=== PATIENT | female | born 1965 | race Caucasian/White ===

== ENCOUNTER 2023-07-04 16:10 | Outpatient (CLI) | payer OTHER, SELFPAY ==
--- NOTE | ~2023-07-04 | MR_ITS ---
EXAMINATION: MR cervical spine wo con DATE: 07/04/2023 16:53 INDICATION: Disease of spinal cord, unspecified. TECHNIQUE: Magnetic resonance imaging (MRI) of the cervical spine was performed without intravenous c ontrast. Sequences included sagittal T2-weighted FSE, sagittal T2-weighted FS FSE, sagittal T1-weight ed FSE, axial MERGE, and axial T2-weighted FSE. COMPARISON: None FINDINGS: There is 2 mm anterolisthesis of C4 on C5. There is mild kyphosis of cervical spine. Verteb ral body heights are normal. There is mildly decreased disc height at C5-C6. The spinal cord signal i ntensity is normal. The following disc levels are specifically discussed: C2-C3: The disc does not extend beyond the endplate margin. There is no uncovertebral joint osteoarth ritis. There is mild right and severe left facet joint osteoarthritis. There is mild left neural fora jennifer stenosis. There is no central canal stenosis. C3-C4: There is a central extrusion. There is moderate right and mild left uncovertebral joint osteoa rthritis. There is severe bilateral facet joint osteoarthritis. There is severe right and mild left n eural foraminal stenosis. There is mild central canal stenosis. C4-C5: The disc is bulging. There is mild bilateral uncovertebral joint osteoarthritis. There is jeremy re bilateral facet joint osteoarthritis. There is severe right and mild left neural foraminal stenosi s. There is no central canal stenosis. C5-C6: There is a central extrusion. There is severe bilateral uncovertebral joint osteoarthritis. Th ere is moderate right and mild left facet joint osteoarthritis. There is mild bilateral neural forami nal stenosis. There is moderate central canal stenosis with ventral and dorsal indentation of the spi nal cord. C6-C7: There is a central protrusion. There is no uncovertebral joint osteoarthritis. There is severe right and moderate left facet joint osteoarthritis. There is mild right neural foraminal stenosis. T here is no central canal stenosis. C7-T1: The disc does not extend beyond the endplate margin. There is no uncovertebral joint osteoarth ritis. There is moderate bilateral facet joint osteoarthritis. There is no neural foraminal stenosis. There is no central canal stenosis. IMPRESSION: 1. Moderate cervical spondylosis. Reviewed, dictated and finalized at location A.
== END 2023-07-04 16:11 | disposition home or self-care (01) ==
LOC: ANHIMG 16:14
PROVIDERS: PCP Internal Medicine; Visit Provider Neurological Surgery
DX: M47.892 Other spondylosis, cervical region (principal)
CPT/HCPCS: 72141

== ENCOUNTER 2023-07-18 15:11 | Outpatient (CLI) | payer OTHER, SELFPAY ==
--- NOTE | ~2023-07-18 | XR_ITS ---
EXAMINATION: XR cervical spine 4-5V DATE: 07/18/2023 15:27 INDICATION: Disease of spinal cord, unspecified. TECHNIQUE: 6 views of cervical spine were obtained. COMPARISON: Cervical spine MRI 07/04/2023 FINDINGS: There is 2 mm anterolisthesis of C4 on C5. There is 6 degrees levocurvature of cervical spi ne. There is no abnormal motion with flexion or extension. Vertebral body heights are normal. There i s mildly decreased disc height at C5-C6. There is multilevel facet joint osteoarthritis, severe on th e right at C3-C4, C4-C5, and C5-C6. There is multilevel uncovertebral joint osteoarthritis, severe on the right at C4-C5 and bilaterally at C5-C6. No central canal stenosis or prevertebral soft tissue s welling. IMPRESSION: 1. Moderate cervical spondylosis. Reviewed, dictated and finalized at location E.
== END 2023-07-18 15:12 | disposition home or self-care (01) ==
LOC: ANHIMG 15:13
PROVIDERS: PCP Internal Medicine; Visit Provider Neurological Surgery
DX: G95.9 Disease of spinal cord, unspecified (principal); M47.892 Other spondylosis, cervical region
CPT/HCPCS: 72050

== ENCOUNTER 2023-09-10 11:14 | Outpatient (CLI) | payer OTHER, SELFPAY ==
--- NOTE | ~2023-09-10 | XR_ITS ---
EXAMINATION: XR chest 2V 09/10/2023 12:33 INDICATION: Patient vapes. PROCEDURE: 2 view chest COMPARISON: No prior studies for comparison. FINDINGS: The lungs are clear. The cardiomediastinal silhouette is within normal limits. There are no pleural effusions. There is no pneumothorax suspected. IMPRESSION: 1: NO ACUTE CARDIOPULMONARY DISEASE. Reviewed, dictated and finalized at location L. AGE STRINGER
--- NOTE | 2023-09-10 11:43 | ECG_ITS ---
Measurements Intervals [place] Rate: 92 P: 71 CA: 153 QRS: 13 QRSD: 80 T: 29 QT: 351 QTc: 436 Interpretive Statements SINUS RHYTHM LOW QRS VOLTAGE IN PRECORDIAL LEADS PATTERN CONSISTENT WITH PULMONARY DISEASE CONSIDER INFERIOR INFARCT, AGE INDETERMINATE BASELINE WANDER- V5 ABNORMAL ECG NO PREVIOUS ECG AVAILABLE FOR COMPARISON Electronically Signed On 09-10-2023 16:40:42 LIMEHOUSE WORKER by Praveen Leonardo D.O.
[2023-09-10 12:35] LABS: Hematocrit 44.7 % (37.0-47.0); Mean Corpuscular HGB Conc 31.3 g/dl (32-36); Mean Corpuscular Hemoglobin 27.3 pg (26-34); Mean Corpuscular Volume 87.3 fl (80-100); Mean Platelet Volume 10.3 fl (7.4-10.4); Platelet Count Result 237 k/mm3 (150-375); Red Blood Count 5.12 M/mm3 (4.2-5.4); Red Cell Distribution Width 13.9 % (11.5-14.5); White Blood Count 11.2 K/mm3 (4.5-10.0)
[2023-09-10 12:44] LABS: Appearance Urine Turbid (Clear); Bilirubin Urine Negative (Negative); Blood Urine Negative (Negative); Color Urine Yellow (Yellow); Glucose Urine UA Negative (Negative); Ketones Urine Trace mg/dL (Negative); Leukocyte Esterase Ur Trace LEU/UL (Negative); Nitrate Urine Negative (Negative); Protein Urine Negative (Negative); Specific Grav Ur 1.025 (1.001-1.035)
[2023-09-10 12:45] LABS: Anion Gap 10 mmol/L (8-16); Blood Urea Nitrogen 19 mg/dL (7-17); Calcium 8.8 mg/dL (8.4-10.2); Carbon Dioxide 26 mmol/L (22-30); Chloride 102 mmol/L (98-107); Estimated Glomerular Filt Rate > 60; Glucose 139 mg/dL (65-110); Potassium 3.8 mmol/L (3.4-5.0); Sodium 138 mmol/L (137-145)
[2023-09-10 12:46] LABS: Prothrombin Time 13.9 Seconds (11.1-14.7)
[2023-09-10 12:47] LABS: Add Urine Microscopic? YES; Partial Thromboplastin Time 26.7 SECONDS (22.3-36.8)
[2023-09-10 12:52] LABS: Bacteria Urine 4+ /hpf; Squamous Epithelial Cell Urine Many /hpf (Few); WBC Urine 21-50 /hpf
== END 2023-09-10 11:15 | disposition home or self-care (01) ==
PROVIDERS: PCP Internal Medicine; Visit Provider Neurological Surgery
DX: Z01.818 Encounter for other preprocedural examination (principal)
CPT/HCPCS: 36415; 71046; 80048; 81001; 85027; 85610; 85730; 86850; 86900; 86901; 87086; 87088; 93005

== ENCOUNTER 2023-09-11 03:38 | Day surgery (SDC) | payer OTHER, SELFPAY ==
[2023-09-04 11:31] VITALS: BMI 48.9
--- NOTE | 2023-09-04 11:40 | PC.NURSE ---
Report to the Outpatient Waiting Room, entrance under the green pavilion located off [facility], at time 6:00 on date 09/11/23. Planned Procedure Time: 7:30. Time changes happen often and if your time is changed the preop area will call you the afternoon before. - You and your visitor will be asked to self-screen and do not enter if you have any COVID symptoms. - A mask is optional within the hospital at this time. Patients may have clear liquids (water, carbonated beverages, clear teas, apple juice) until 3 hours prior to surgery with a maximum of 20 ounces. - No food from midnight until time of surgery Take the following medications with a SIP of water the morning of surgery: INHALER IF NEEDED, DIVALPROEX, FLUOXETINE, HYDROXYZINE/LORAZEPAM IF NEEDED DO NOT STOP ANY OF YOUR OTHER PRESCRIPTION MEDICATIONS PRIOR TO SURGERY ?EXCEPT THE FOLLOWING Medications to discontinue per physician: N/A Date to take last dose: N/A Please no make-up, nail uzbek, hairspray, perfume, deodorant, or body powder the day of surgery. No jewelry (including any body piercings) or valuables the day of surgery, leave them at home. Please take a shower or bath the night before, or the morning of, surgery with an antibacterial soap. Wear comfortable, loose fitting clothing. - Jewelry must be removed prior to entering the operating room. Rings and piercings that are not removed may be cut off. - The hospital will not accept responsibility for valuables. - Please leave all valuables, including medications, at home the day of surgery. If you are going home after surgery, a licensed otr refrigerated cdl truck driver must drive you home. - NO public transportation without another adult if you receive anesthesia. - We recommend that an adult stay with you for 24 hours following discharge. - We also recommend that you do not drive, make important decision, drink alcoholic beverages, or take any drugs that were not prescribed by your health care provider for at least 24 hours after your discharge time. Follow any additional instructions given to you from your surgeon. If you or anyone in your household have experienced Covid symptoms in the past week, please notify your surgeon or the nurse liaison at the phone number below for possible testing. Telephone instructions given to PT - JAIME BORGES and asked if any additional questions and then verbalized understanding. Patient advised to call surgeon office or pre surgery nurse liaison [phone] if any additional questions.
--- NOTE | 2023-09-04 15:42 | PC.NURSE ---
Spoke with pt regarding housing after surgery. Pt states she will be staying with her daughter after hospital D/C. States housing is not an issue beyond that date.
[2023-09-11] VITALS (13 sets, daily range): BP systolic 119–139; BP diastolic 53–95; PULSE 77–103; RESP 13–20; TEMP 36.2–36.7; O2SAT 91–100; BMI 47.1
--- NOTE | ~2023-09-11 | XR_ITS ---
XR fluoroscopy no charge Indication: Anterior cervical fusion and discectomy TECHNIQUE: Fluoroscopy used during Anterior cervical fusion and discectomy performed by [Nayeli Guzmán MD] on 09/11/2023. 10 seconds of fluoroscopy time with 3 images captured. FINDINGS: Correlate with procedure note. IMPRESSION: Fluoroscopy used during Anterior cervical fusion and discectomy at C4-6. Reviewed, dictated and finalized at location B. ER HELPER
[2023-09-11] MEDS: LACTATED RINGERS 1,000 ML 30 ML IV CONT ×2 (07:00→11:10)
--- NOTE | 2023-09-11 07:24 | PM.IMHP ---
H&P: HPI History of Present Illness Date/Time: 09/11/23 07:24 Chief Complaint: myelopathic symptoms Narrative: Ms. Burkett is a 57-year-old female with history of asthma and bipolar disorder who presents for evaluation of neck pain.? She has about a 5 year history of bilateral paraspinal neck pain which is intermittent and does not occur in a daily basis.? However, it become so significant that it moves her tears, particularly at the end of workday.? She denies any radicular pain into her but does have paresthesias in all fingers of both hands, worse on right side, for the last 8 months.? She has been dropping objects her right hand.? She also reports some difficulty with tripping, falling, and balance, as well as a 1 year history urinary urgency and possible overflow incontinence.? She does completed a course physical therapy with 10 visits which did not make any significant change.? She tried a muscle relaxer as well as ibuprofen, Tylenol, heat, ice, and getting a new bed, none of which have provided any significant benefit.? She has not seen a pain management physician for her neck. ? She is a previous smoker but currently vapes. 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 Review of Systems Review of Systems: All systems reviewed & are unremarkable except as noted in HPI and below PMFSH Past Medical History Medical History Cervical myelopathy Family History Family History Father Diabetes mellitus Hypertension Sibling Hypertension Depression Anxiety Heart disease Daughter Anxiety Depression Social History Social History Social History: Kayla is very confident filling out medical forms. In the last 12 months she has received assistance from an organization or program for food. Smoking packs per day: 1 Smoking cigarettes per day: 20.0 Years smoked: 37 Smoking pack-years: 37.00 Smoking status: Current every day smoker Tobacco type: cigarettes and e-cigarettes/vaping Additional smoking assessment comments: QUIT CIGARETTES 2018, NOW VAPING Alcohol intake: current Alcohol use details: VERY RARE Substance use: never Substance use type: does not use Lack of Transportation: No Lack of Food: Never True Current Housing: I Have Housing Concerned About Future Housing: No Difficulty Paying Gas/Electric Bills: No Difficulty Paying for Meds: No Currently Unemployed: No Education: High School Diploma/GED Difficulty w/ Childcare or Family Care: No Living arrangements: alone Additional living arrangements comments: PT STATES MAY BE HOMELESS SOON, BUT CONFIDENT SHE WOULD HAVE A PLACE TO STAY WITH A FAMILY MEMBER IF DISCHARGED 09/12. 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 [employer] Spiritual care concerns: No Agree to blood products: Yes Meds Home Medications and Allergies Home Medications Medication Instructions Recorded Confirmed Type divalproex 500 mg tablet,delayed 500 mg PO Q12H 05/08/23 09/11/23 History release fluoxetine 20 mg capsule 20 mg PO DAILY 05/08/23 09/11/23 History hydroxyzine pamoate 25 mg capsule 25 mg PO BID PRN Anxiety 05/08/23 09/11/23 History lorazepam 0.5 mg tablet 0.5 mg PO DAILY PRN Anxiety 05/08/23 09/11/23 History quetiapine 400 mg tablet 400 mg PO HS 05/08/23 09/11/23 History albuterol sulfate 90 mcg/actuation 1 inh inhalation Q4H PRN 09/04/23 09/04/23 History aerosol inhaler Bronchospasm Allergies Allergy/AdvReac Type Severity Reaction Status Date / Time No Known Allergies Allergy Verified 09/04/23 11:30 Exam Narrative: Fairly significant paraspinal muscle tenderness bilaterally Pain with active ROM in all directions Otherwise no deficit or abnormal reflexes Unless otherwise stated ab
--- NOTE | 2023-09-11 07:26 | WPDHPUPDATE1 ---
History and Physical Update Update Date/Time: 09/11/23 07:26 History and Physical has been reviewed, including an updated exam of the patient. There are NO changes in the patient's condition. Risks, benefits, and alternatives have been discussed and questions answered. Patient agrees to proceed with procedure.
--- NOTE | 2023-09-11 07:34 | SUR.PREOP ---
0650-Pt aware of surgery delay until 0800.
[2023-09-11] MEDS: ceFAZolin 3 GM/D5W 100 ML 100 ML IVPB (08:00)
--- NOTE | 2023-09-11 08:17 | WPDANESEPPF ---
Anes - Initial Pre Proc Eval Procedure: Operation Date: 09/11/23 07:30 Proposed Procedures p Anterior Cervical Discectomy with Fusion C4-C5, C5-C6 - Nayeli Guzmán MD Date/Time: 09/11/23 08:17 Surgeon: Nayeli Guzmán MD Pre Op Diagnosis: cervical disc herniation myelopathy,cervical spond Patient Data Age: 57 Gender: F Height: 1.63 m Weight: 124.5 kg Last Vital Signs Temp 36.2 C L 09/11/23 06:17 Pulse 90 09/11/23 06:17 Resp 20 09/11/23 06:17 BP 139/95 H 09/11/23 06:17 Pulse Ox 99 09/11/23 06:17 O2 Del Method Room Air 09/11/23 06:17 Allergies Allergy/AdvReac Type Severity Reaction Status Date / Time No Known Allergies Allergy Verified 09/04/23 11:30 Home Medications Medication Instructions Recorded Confirmed Type divalproex 500 mg tablet,delayed 500 mg PO Q12H 05/08/23 09/11/23 History release fluoxetine 20 mg capsule 20 mg PO DAILY 05/08/23 09/11/23 History hydroxyzine pamoate 25 mg capsule 25 mg PO BID PRN Anxiety 05/08/23 09/11/23 History lorazepam 0.5 mg tablet 0.5 mg PO DAILY PRN Anxiety 05/08/23 09/11/23 History quetiapine 400 mg tablet 400 mg PO HS 05/08/23 09/11/23 History albuterol sulfate 90 mcg/actuation 1 inh inhalation Q4H PRN 09/04/23 09/04/23 History aerosol inhaler Bronchospasm Patient hx anesthesia problems: none Family hx anesthesia problems: none Results Review: All pre-operative results and documents have been reviewed as part of the pre-operative evaluation. [facility] Past Medical History Medical History (Updated 09/11/23 @ 08:18 by Arnaldo Rivera DO) Asthma Bipolar disorder Cervical myelopathy Chronic pain Family History Family History Father Diabetes mellitus Hypertension Sibling Hypertension Depression Anxiety Heart disease Daughter Anxiety Depression Social History Social History Social History: Kayla is very confident filling out medical forms. In the last 12 months she has received assistance from an organization or program for food. Smoking packs per day: 1 Smoking cigarettes per day: 20.0 Years smoked: 37 Smoking pack-years: 37.00 Smoking status: Current every day smoker Tobacco type: cigarettes and e-cigarettes/vaping Additional smoking assessment comments: QUIT CIGARETTES 2018, NOW VAPING Alcohol intake: current Alcohol use details: VERY RARE Substance use: never Substance use type: does not use Lack of Transportation: No Lack of Food: Never True Current Housing: I Have Housing Concerned About Future Housing: No Difficulty Paying Gas/Electric Bills: No Difficulty Paying for Meds: No Currently Unemployed: No Education: High School Diploma/GED Difficulty w/ Childcare or Family Care: No Living arrangements: alone Additional living arrangements comments: PT STATES MAY BE HOMELESS SOON, BUT CONFIDENT SHE WOULD HAVE A PLACE TO STAY WITH A FAMILY MEMBER IF DISCHARGED 09/12. 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 Informed Consent: The patient's anesthetic plan and its attendant risks and benefits were discussed with the patient/family/POA. Questions were solicited and answers provided to the satisfaction of the patient
[2023-09-11] MEDS: BUPIVACAINE/EPINEPHRINE 0.5% 50 ML VIAL 20 ML INFILTRATE (08:38)
--- NOTE | 2023-09-11 11:14 | P.OPB_ITS ---
Procedure Note - Brief Procedure Note - Brief Date of procedure: 09/11/23 cervical disc herniation myelopathy,cervical spond Post-op diagnosis: Same Procedure performed: Anterior cervical diskectomy and fusion C4-5, C5-6 Use of microscope Use of C-arm Surgeon: Nayeli Guzmán MD Competitive Intelligence Analyst: Herbert Anesthesia: LAVERN Estimated blood loss (mL): 50 Drains: No Packing: No Pathology: None sent Complications: None Condition: Stable Disposition: PACU
[2023-09-11] MEDS: fentaNYL CITRATE INJ (*CRX) 100 MCG/2 ML VIAL 25 MCG IV PUSH ×8 (11:39→12:10)
--- NOTE | 2023-09-11 13:00 | ADMGEN ---
This patient, Kayla Burkett, was admitted to Medical Room 348-. Patient/family oriented to hospital policies and general routines including ID bracelet, bed and alarms, visiting hours, pain management, procedures, bathroom and other care routines, personal items, smoking policy, room service/diet, and visiting hours. Information on how to activate the Rapid Response Team has been discussed. Patient/Family are encouraged to report perceived risks to care and to ask questions if they do not understand what they are told or what they should do.
--- NOTE | 2023-09-11 14:23 | W.PM.PROC2 ---
Procedure Note - Detailed Date of Procedure 09/11/23 Pre-op Diagnosis cervical disc herniation myelopathy,cervical spond Post-op Diagnosis Same Procedure Performed 1. Anterior cervical diskectomy at C4-5, C5-6 2. Anterior cervical instrumentation at C4-5, C5-6 3. Anterior cervical arthrodesis at C4-5, C5-6 4. Use of microscope for microsurgical dissection 5. Use of C-arm for fluoroscopy Surgeon Nayeli Guzmán MD Talend Developer Herbert Anesthesia General Description of Procedure The patient was taken to the operating room and was transferred to the operating table in the supine position. General anesthesia was induced. Pressure points were appropriately padded, and compression devices were placed on the patient's calves. A shoulder roll was placed. The previous surgical site was marked, and the appropriate level was confirmed with the C-arm XR imaging. The patient was prepped and draped in usual sterile fashion. Perioperative antibiotics were given. Time out was performed. Local anesthesia was injected into the planned incision site. Incision was made with a 10-blade scalpel. The subcutaneous tissue was undermined above the platysma with the Metzenbaum scissors. The platysma was sharply opened horizontally. Bleeding was controlled with the bipolar. The avascular plane to the spine was dissected sharply. The anterior border of the spine was located and exposed with sharp and blunt dissection. A spinal needle was used to localize the C4-5 disc space; this was confirmed on fluoroscopy. The longus coli muscles were elevated bilaterally with a bovie. Once the C4, C5, and C6 vertebral bodies and adjacent intervertebral discs were adequately exposed, self-retaining retractors were placed. Barnard pins were placed in the C4 and C5 vertebral bodies and were distracted. A 15-blade scalpel was used to incise the C4-5 disc. A combination of Kerrisons, currettes, and pituitary instruments were used to remove each disc. The microscope was draped and brought into the surgical field. The removal of disc and osteophytes were completed using a high-speed drill, multiple Kerrison punches, and angled currettes. The posterior longitudinal ligament was opened with a currette and kerrison rongeurs until the neuroforamen bilaterally were adequately decompressed. Interbody trial instruments were used to determine the appropriate size for the prosthetic vertebral interbody cage. Hemostasis was achieved in the disc space. A 6mm cage was placed at C4-5. The caspar pin in C4 was removed and placed in the C6 vertebral body. Bone wax was used to fill the bone where the caspar pin had been. The diskectomy process was repeated at the C5-6 disc. The disc was removed as described above, and the posterior longitudinal ligament was opened until the neuroforamen bilaterally were adequately decompressed. Interbody trial instruments were used to determine the appropriate size for the prosthetic vertebral interbody cage. Hemostasis was achieved in the disc space. A 6mm cage was also placed at this level. The Barnard pins were removed, and bone wax was used for hemostasis. Osteophytes over the vertebral bodies were removed wtih a Leksell and high-speed drill. A 34mm plate was placed over the vertebral bodies and secured with 14mm screws. Accurate hardware placement was confirmed with fluoroscopy. The surgical cavity was copiously irrigated; appropriate hemostasis was verified; and there was no evidence of dural tear/CSF leak. The platysma was closed with interrupted 3-0 Vicryl, followed by interrupted 3-0 Vicryl for the dermis, and 4-0 running subcuticular monocryl for the skin. Dermabond was placed. The patient was extubated, transferred to the bed, and taken to the PACU without incident. Billing codes: 00565, 81650, 66682 x 2, 18514, 31650 Implants 1. Two 6mm Orthofix miniconstruct cages 2. One 34mm Zavation EZ plate 3. Six 4 x 14mm screws 4. 2.5cc iFactor Estimated Blood Loss 50 Drains No Packing
[2023-09-11] MEDS: oxyCODONE HCL (*CRX) 5 MG TAB IR PO ×2 (14:40→22:52)
[2023-09-11] MEDS: ceFAZolin 2 GM/D5W 50 ML 2 GM/50 ML BAG IVPB ×2 (17:02→22:53)
[2023-09-11] MEDS: ACETAMINOPHEN 500 MG TABLET 1000 MG PO ×2 (17:02→22:52)
[2023-09-11] MEDS: DIVALPROEX SODIUM DR 250 MG TABEC 500 MG PO (20:06)
[2023-09-11] MEDS: DOCUSATE SODIUM 100 MG CAPSULE PO (20:07)
[2023-09-11] MEDS: QUEtiapine FUMARATE 100 MG TABLET 400 MG PO (20:07)
[2023-09-11] MEDS: CYCLOBENZAPRINE HCL 10 MG TABLET PO (22:52)
[2023-09-12 00:13] VITALS: BP 111/59; PULSE 98; RESP 16; TEMP 36.6; O2SAT 96
[2023-09-12] MEDS: ACETAMINOPHEN 500 MG TABLET 1000 MG PO (05:36)
[2023-09-12] MEDS: oxyCODONE HCL (*CRX) 5 MG TAB IR 10 MG PO (05:36)
[2023-09-12 05:39] VITALS: BP 106/52; PULSE 96; RESP 14; TEMP 36.5; O2SAT 100
[2023-09-12] MEDS: DIVALPROEX SODIUM DR 250 MG TABEC 500 MG PO (08:13)
[2023-09-12] MEDS: DOCUSATE SODIUM 100 MG CAPSULE PO (08:13)
[2023-09-12] MEDS: ceFAZolin 2 GM/D5W 50 ML 2 GM/50 ML BAG IVPB (08:13)
[2023-09-12] MEDS: FLUoxetine HCL 20 MG CAPSULE PO (08:13)
--- NOTE | 2023-09-12 10:03 | WPDANESPN ---
Anes - Prog Note Post-Op Date/Time: 09/12/23 10:03 Cardiovascular status: normal Respiratory status: normal Airway patency: baseline Mental status: baseline Post-Op hydration status: normal Vital Signs: Last Vital Signs Temp 36.5 C 09/12/23 05:39 Pulse 96 09/12/23 05:39 Resp 14 09/12/23 05:39 BP 106/52 L 09/12/23 05:39 Pulse Ox 100 09/12/23 05:39 O2 Del Method Room Air 09/12/23 08:00 O2 Flow Rate 4 09/11/23 12:15 Pain Score (VAS): 2/10 I/O: Intake & Output 09/11/23 09/12/23 09/12/23 23:59 07:59 15:59 Intake Total 640 Balance 640 Post-procedural complaints: none Patient Feedback: Patient satisfied with anesthetic care.
--- NOTE | 2023-09-12 15:15 | PC.NURSE ---
Patient's daughter Court called and stated that [facility] in [facility] was out of stock of oxycodone 5 mg tabs. Call placed to [facility] and they do have it in stock. Call placed to Dr Guzmán and she stated that she did not have a computer now to send script but would contact her partner and see if they would be able to send script electronically. I called Court back to let her know.
== END 2023-09-12 10:54 | disposition home or self-care (01) ==
LOC: ANHSURGERY 11:18 → ANH3MED 12:23
PROVIDERS: PCP Internal Medicine; Visit Provider Neurological Surgery
PROC: (CPT 63030; principal; 2023-09-11 07:30)
DX: M50.022 Cervical disc disorder at C5-C6 level with myelopathy (principal); M43.12 Spondylolisthesis, cervical region; J45.909 Unspecified asthma, uncomplicated; F31.9 Bipolar disorder, unspecified; G89.29 Other chronic pain; Z79.51 Long term (current) use of inhaled steroids; F17.290 Nicotine dependence, other tobacco product, uncomplicated; E66.01 Morbid (severe) obesity due to excess calories; Z68.42 Body mass index [BMI] 45.0-49.9, adult
CPT/HCPCS: 22551; 22552; 22853 ×2; 99199; A9270; C1713; J0330; J0690; J1100; J2250; J2371; J2405; J2704; J3010; J7120

== ENCOUNTER 2023-09-12 21:22 | Emergency (ER) | payer OTHER, SELFPAY ==
--- NOTE | 2023-09-12 | ECG_ITS ---
Measurements Intervals [place] Rate: 104 P: 66 PA: 140 QRS: 12 QRSD: 78 T: 43 QT: 285 QTc: 376 Interpretive Statements SINUS TACHYCARDIA DELAYED PRECORDIAL R/S TRANSITION LOW QRS VOLTAGE IN PRECORDIAL LEADS NONSPECIFIC T-WAVE ABNORMALITY- ANT/INF LEADS BASELINE ARTIFACT- I, II, AVR, AVL, AVF, V1 BORDERLINE ECG COMPARED TO ECG 09/10/2023 12:18:03 SINUS TACHYCARDIA NOW PRESENT Electronically Signed On 09-13-2023 10:31:01 OXIDATION ENGINEER by Praveen Leonardo D.O.
--- NOTE | ~2023-09-12 | XR_ITS ---
XR chest 1V portable DATE: 09/12/2023 21:52 INDICATION: Chest pain TECHNIQUE: Portable upright AP chest views on 09/12/2023 2145 hours COMPARISON: 09/10/2023 PA and lateral chest FINDINGS: Status post anterior cervical spine surgical fusion since 09/10/2023. Normal heart size. No hilar or mediastinal enlargement.. No pulmonary infiltrate or consolidation, pl eural effusion or pulmonary vascular congestion or pneumothorax IMPRESSION: No active cardiopulmonary disease Interval anterior cervical spine surgical fusion since 09/10/2023 Reviewed, dictated and finalized at location A. AND FROST INSULATOR
[2023-09-12 21:22] VITALS: PULSE 110; RESP 16; TEMP 36.3; O2SAT 98
[2023-09-12 21:58] LABS: Basophils Percent Auto 0.3 % (0.2-1.2); Eosinophils Absolute Auto 0.2 K/mm3 (0-0.3); Eosinophils Percent Auto 2.1 % (0-4.4); Hematocrit 40.8 % (37.0-47.0); Hemoglobin 12.9 g/dL (12.0-15.0); Immature Granulocyte Absolute 0.05 K/mm3 (0.00-0.031); Immature Granulocyte Percent A 0.5 % (0-0.5); Lymphocytes Absolute Auto 3.91 K/mm3 (0.9-3.2); Lymphocytes Percent Auto 35.6 % (18.3-44.2); Mean Corpuscular HGB Conc 31.6 g/dl (32-36); Mean Corpuscular Hemoglobin 27.4 pg (26-34); Mean Corpuscular Volume 86.6 fl (80-100); Mean Platelet Volume 10.1 fl (7.4-10.4); Monocytes Absolute Auto 0.8 K/mm3 (0.1-0.6); Monocytes Percent Auto 7.1 % (2.6-8.5); Neutrophils Percent Auto 54.4 % (45.5-73.1); Platelet Count Result 181 k/mm3 (150-375); Red Blood Count 4.71 M/mm3 (4.2-5.4)
[2023-09-12 22:07] LABS: Prothrombin Time 13.5 Seconds (11.1-14.7)
[2023-09-12 22:08] LABS: Partial Thromboplastin Time 27.2 SECONDS (22.3-36.8)
[2023-09-12 22:12] LABS: Alanine Aminotransferase 12 U/L (6-35); Albumin Level 3.6 g/dL (3.5-5.1); Alkaline Phosphatase 88 U/L (38-126); Anion Gap 7 mmol/L (8-16); Aspartate Amino Transferase 17 U/L (14-36); Bilirubin,Total 0.4 mg/dL (0.2-1.3); Blood Urea Nitrogen 12 mg/dL (7-17); Calcium 8.7 mg/dL (8.4-10.2); Carbon Dioxide 30 mmol/L (22-30); Chloride 100 mmol/L (98-107); Estimated CRCL calculation 117 ml/min; Estimated Glomerular Filt Rate > 60; Glucose 147 mg/dL (65-110); Lipase 200 U/L (23-300); Potassium 3.7 mmol/L (3.4-5.0); Sodium 137 mmol/L (137-145)
[2023-09-12] MEDS: methocarbamoL 750 MG TABLET PO (22:18)
[2023-09-12] MEDS: oxyCODONE HCL (*CRX) 5 MG TAB IR 10 MG PO (22:18)
[2023-09-12 22:24] LABS: Troponin I < 0.012 ng/mL (0.000-0.034)
--- NOTE | 2023-09-12 23:19 | ED.GENADULT ---
HPI - General Adult General Chief complaint: Chest Pain Stated complaint: CP s/p NECK SURGERY Time Seen by Provider: 09/12/23 21:49 History of Present Illness HPI narrative: this is a 57-year-old female presenting ED with neck pain. Patient had a cervical fusion performed earlier today. She was not able to her RX for pain. She is not complaining of pain in her neck. No difficulty breathing or trouble swallowing. No voice changes. No other complaints. Related Data Home Medications Medication Instructions Recorded Confirmed divalproex 500 mg tablet,delayed 500 mg PO Q12H 05/08/23 09/11/23 release fluoxetine 20 mg capsule 20 mg PO DAILY 05/08/23 09/11/23 hydroxyzine pamoate 25 mg capsule 25 mg PO BID PRN Anxiety 05/08/23 09/11/23 lorazepam 0.5 mg tablet 0.5 mg PO DAILY PRN Anxiety 05/08/23 09/11/23 quetiapine 400 mg tablet 400 mg PO HS 05/08/23 09/11/23 albuterol sulfate 90 mcg/actuation 1 inh inhalation Q4H PRN 09/04/23 09/04/23 aerosol inhaler Bronchospasm Allergies Allergy/AdvReac Type Severity Reaction Status Date / Time No Known Allergies Allergy Verified 09/11/23 14:41 [facility] Past Medical History Medical History Asthma Bipolar disorder Cervical myelopathy Chronic pain Family History Family History Father Diabetes mellitus Hypertension Sibling Hypertension Depression Anxiety Heart disease Daughter Anxiety Depression Social History Social History Social History: Kayla is very confident filling out medical forms. In the last 12 months she has received assistance from an organization or program for food. Smoking packs per day: 1 Smoking cigarettes per day: 20.0 Years smoked: 37 Smoking pack-years: 37.00 Smoking status: Former smoker Additional smoking assessment comments: QUIT CIGARETTES 2018, NOW VAPING Alcohol intake: current Alcohol use details: VERY RARE Substance use: never Substance use type: does not use Lack of Transportation: No Lack of Food: Never True Current Housing: I Have Housing Concerned About Future Housing: No Difficulty Paying Gas/Electric Bills: No Difficulty Paying for Meds: No Currently Unemployed: No Education: High School Diploma/GED Difficulty w/ Childcare or Family Care: No Living arrangements: alone Additional living arrangements comments: PT STATES MAY BE HOMELESS SOON, BUT CONFIDENT SHE WOULD HAVE A PLACE TO STAY WITH A FAMILY MEMBER IF DISCHARGED 09/12. 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 Head: atraumatic. EYES: EOMI, NOSE: Atraumatic NECK: Well-healed anterior approach cervical scar with minimal swelling. RESPIRATORY: No increased rate of breathing CARDIOVASCULAR: RRR, ABDOMINAL: Non-distended MUSCULOSKELETAl: No obvious deformities NEURO: Alert. Moving 4/4 extremities SKIN:: Warm, dry. Normal color PSYCHIATRIC: Normal affect Course Vital Signs Vital signs: Vital Signs Temperature 97.4 F L 09/12/23 21: Pulse Rate 110 H 09/12/23 21:22 Respiratory Rate 16 09/12/23 21:22 Pulse Oximetry 98 09/12/23 21:22 Oxygen Delivery Room Air 09/12/23 21:22 Temperature 97.4 F L 09/12/23 21:22 Pulse Rate 110 H 09/12/23 21:22 Respiratory Rate 16 09/12/23 21:22 Pulse Oximetry 98 09/12/23 21:22 Oxygen Delivery Room Air 09/12/23 21:22 Medical Decision Making MDM Narrative Medical decision making narrative: -Course: 57-year-old female presenting with postop pain. She not fill any of her pain medications. She also has issues with chronic pain. Patient was given oxycodone, Robaxin and Tylenol with improvement in her sym
[2023-09-13 00:39] VITALS: BP 134/78; PULSE 94; RESP 16; O2SAT 97
== END 2023-09-13 00:40 | disposition home or self-care (01) ==
PROVIDERS: Emergency Provider Emergency Medicine; PCP Internal Medicine
DX: G89.18 Other acute postprocedural pain (principal); M54.2 Cervicalgia; Z98.1 Arthrodesis status; J45.909 Unspecified asthma, uncomplicated; F31.9 Bipolar disorder, unspecified; F17.290 Nicotine dependence, other tobacco product, uncomplicated; R00.0 Tachycardia, unspecified; R94.31 Abnormal electrocardiogram [ECG] [EKG]
CPT/HCPCS: 36415; 71045; 80053; 83690; 84484; 85025; 85610; 85730; 93005; 99284; A9270

== ENCOUNTER 2023-12-25 14:08 | Outpatient (CLI) | payer OTHER, SELFPAY ==
--- NOTE | ~2023-12-25 | XR_ITS ---
EXAMINATION: XR_CERV2-3V_CR DATE: 12/25/2023 14:32 INDICATION: Disease of spinal cord. TECHNIQUE: 3 views of cervical spine on 4 radiographs were obtained. COMPARISON: Cervical spine radiographs 07/18/2023 FINDINGS: Bone alignment is normal. There are changes of anterior fusion procedure from C4 to C6 with interbody devices and anterior plate and screws. Vertebral body heights are normal. There is multile karon facet joint osteoarthritis, severe on the right at C3-C4 and C4-C5. There is mild central canal s tenosis at C3-C4 and C6-C7. No prevertebral soft tissue swelling. IMPRESSION: 1. Mild cervical spondylosis. 2. Anterior fusion procedure from C4 to C6. Reviewed, dictated and finalized at location E. 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
== END 2023-12-25 14:09 | disposition home or self-care (01) ==
LOC: ANHIMG 14:10
PROVIDERS: PCP Internal Medicine; Visit Provider Physician Assistant
DX: G95.9 Disease of spinal cord, unspecified (principal); M50.20 Other cervical disc displacement, unspecified cervical region; M47.892 Other spondylosis, cervical region; Z98.1 Arthrodesis status
CPT/HCPCS: 72040

== ENCOUNTER 2024-04-02 13:40 | Outpatient (CLI) | payer OTHER, SELFPAY ==
--- NOTE | ~2024-04-02 | XR_ITS ---
XR_CERV2-3V_CR Ordering provider: Nayeli Guzmán MD History: . Z98.1 - Arthrodesis status, SURGERY 08/2023 . Comparison: December 25, 2023 FINDINGS: VERTEBRAL BODIES: Normal height and alignment. No visible fracture or subluxation. The dens is intact . Postoperative changes seen in the lower cervical area with plate and screws and with disc spacers at the levels of C4-C5 and C5-C6. No change in alignment compared to previous exam. DISK SPACES: C2-C3, C3-C4 and C6-C7 disc spaces are Well maintained. Multilevel uncovertebral joint o steoarthritic changes. Multilevel facet joint disease. PARASPINOUS SOFT TISSUES: No prevertebral soft tissue swelling. IMPRESSION: No acute osseous abnormality cervical spine. No change from previous examination. Reviewed, dictated and finalized at location A. IMPRESSION: No acute osseous abnormality cervical spine. No change from previous examdoroteo maxwell
== END 2024-04-02 13:41 | disposition home or self-care (01) ==
PROVIDERS: PCP Internal Medicine; Visit Provider Neurological Surgery
DX: Z98.1 Arthrodesis status (principal)
CPT/HCPCS: 72040

== ENCOUNTER 2024-04-17 08:30 | Outpatient (CLI) | payer OTHER, SELFPAY ==
--- NOTE | ~2024-04-17 | XR_ITS ---
EXAMINATION: XR chest 2V DATE: 04/17/2024 09:00 INDICATION: Dyspnea on exertion TECHNIQUE: PA and lateral views of the chest were obtained. COMPARISON: Chest radiograph dated 09/12/2023 FINDINGS: The lungs remain clear with no focal airspace opacities, pulmonary edema, pleural effusion or pneumot horax. The cardiomediastinal silhouette is normal. Interbody fusion devices and plate-screw fixation for instrumented C4 C6 anterior spinal fusion. Moderate midthoracic spondylosis. IMPRESSION: 1. No acute cardiopulmonary disease. Reviewed, dictated and finalized at location B.
--- NOTE | ~2024-04-17 | XR_ITS ---
EXAMINATION: XR lumbar spine 2-3V DATE: 04/17/2024 09:01 INDICATION: Low back pain. TECHNIQUE: 3 views of lumbar spine were obtained. COMPARISON: None. FINDINGS: There is 3 mm anterolisthesis of L4 on L5. Vertebral body heights are normal. Intervertebra l disc heights are normal. There is multilevel facet joint osteoarthritis, severe in lower lumbar spi ne. IMPRESSION: 1. Mild lumbar spondylosis. Reviewed, dictated and finalized at location A. IMPRESSION: 1. Mild lumbar spondylosis.
--- NOTE | 2024-04-17 09:10 | ECG_ITS ---
Test Date: 2024-04-17 09:40:57 Measurements Intervals [place] Rate: 62 P: 32 MO: 140 QRS: 31 QRSD: 84 T: 45 QT: 387 QTc: 395 Interpretive Statements SINUS RHYTHM WITH SINUS ARRHYTHMIA NORMAL ELECTROCARDIOGRAM No previous ECG available for comparison Electronically Signed On 04-17-2024 15:46:39 CDT by Chucho Hicks M.D.
--- NOTE | 2024-04-17 16:29 | WPDPFTINT ---
PFT Procedure Performed PFT Procedure Performed Plethysmography (Lung Vol) Diffusing Cap (DLCO) Flow Vol Loop Spirometry w/o Bronchodil PFT Interpretation This is a pulmonary function test with spirometry, plethysmography and diffusing capacity. The test was performed and results interpreted in accordance with the 2019 and 2005 ATS/ERS Task Force guidelines respectively using the Global Lung Function Initiative-2012 reference equations. Patient demonstrated good effort and cooperation. Reproducibility criteria were met. The quality of the spirometry maneuver was Grade A. Findings: Spirometry: There is decreased maximal expiratory airflow at all lung volumes with concave expiratory flow tracing. The contour the inspiratory flow tracing is normal. The FVC is 2.54 L, 76% predicted. The FEV1 is 1.68 L, 64% predicted. The FEV1: FVC ratio 66%. Plethysmography: The total lung capacity is 5.22 L, 100% predicted. The functional residual capacity is 3.12 L, 106% predicted. The residual volume is 2.68 L, 134% predicted. The residual volume: Total lung capacity ratio is 51%. Diffusing capacity: The diffusing capacity unadjusted for hemoglobin and carboxyhemoglobin is 16.5, 74% predicted. The diffusing capacity adjusted for alveolar volume is 4.17, 94% predicted. Impression: There is a moderate obstructive abnormality. The increase in residual volume to total lung volume ratio is consistent with hyperinflation from an obstructive abnormality. The diffusing capacity is normal. There are no prior studies for comparison
== END 2024-04-17 08:31 | disposition home or self-care (01) ==
PROVIDERS: PCP Internal Medicine; Visit Provider Internal Medicine
DX: R06.09 Other forms of dyspnea (principal); R07.9 Chest pain, unspecified; R94.2 Abnormal results of pulmonary function studies; M47.896 Other spondylosis, lumbar region
CPT/HCPCS: 71046; 72100; 93005; 94375; 94726; 94729